=== PATIENT | female | born 1950 | race Caucasian/White ===

== ENCOUNTER → 2023-09-02 13:27 | Outpatient (CLI) | payer MEDICARE, OTHER, SELFPAY ==
--- NOTE | 2023-09-02 | DI.ECHO.S_ITS ---
[facility] : : [address] : : [place] : : [id number] : : Phone: [phone] Echocardiogram Report + + :Name: LEONARDO HARO Study Date: 09/02/2023 Height: 65.5 in: :[facility] ReadingLocation: Weight: 132 lb : : Gender: Female BSA: 1.7 m2 : :: 1950 Age: 73 yrs BP: 195/82 mmHg: :Reason For Study: ATHEROSCLEROTIC HEART DISEASE : :Ordering Physician: MIKE, : :SAGE Performed By: Daysi Potts : :Referring: SAGE JOHN : + + Interpretation Summary The ejection fraction is estimated to be 60-65%. There are no focal wall motion abnormalities. Prior wall motion abnormalities have resolved which were suspicious for stress induced CMP. Procedure: A two-dimensional transthoracic echocardiogram with color flow Doppler was performed. The study quality was technically good. Comparison is made with the echocardiogram of 11/01/2022. PRIOR ECHO 11/01/2022: HYPERSENSITIVITY TO DEFINITY: THE PATIENT EXPERIENCED SEVERE LOWER BACK PAIN AND ONSET OF BIGEMINY PVCs. . The patient was in sinus rhythm with heart rates between 54-65 bpm during the exam. Left Ventricle: The left ventricle is normal in size and wall thickness. A false chord is noted (normal variant). The ejection fraction is estimated to be 60-65%. There are no focal wall motion abnormalities. Pericardium/ Pleura There is no pericardial effusion. There is no pleural effusion. MMode/2D Measurements & Calculations LVIDd: 4.9 cm LVOT diam: 2.0 cm LVIDs: 3.0 cm Ao root diam: 2.9 cm FS: 37.8 % EPSS: 0.66 cm IVSd: 0.74 cm LVPWd: 0.77 cm LV randle. diameter/BSA (cm/m^2): 2.9 LV sys. diameter/BSA (cm/m^2): 1.8 Reading Physician:03:33 PM
== END ==
PROVIDERS: PCP Internal Medicine; Referring Provider Internal Medicine Cardiovascular Disease; Visit Provider Internal Medicine Cardiovascular Disease
DX: I25.119 Atherosclerotic heart disease of native coronary artery with unspecified angina pectoris (principal)
CPT/HCPCS: 93307